=== PATIENT | female | born 1955 | race Caucasian/White ===

== ENCOUNTER 2017-01-16 20:41 | Emergency (ER) | payer MEDICARE, BC ==
[~2017-01-16] VITALS: Ht 167.6 cm; Wt 89.8 kg
[~2017-01-16 20:41] MED LIST: CYANOCOBALAM1000 MCG PO; CYCLOBENZAPRINE5 MG PO; FISH OIL 1,001000 MG PO; FLEXERIL10 MG PO; GLIPIZIDE10 MG PO; HYDROCODON-ACE1 EAC1 PO; HYDROCODONE/APA1 T16 PO; LEVAQUIN750 MG PO; LISINOPRIL5 MG PO; LODINE400 MG PO; LORTAB 5/500 TA1 TA1 PO; METFORMIN HCL1000 M1 PO; TAMIFLU75 M1 PO; TRAMADOL HCL50 M2 PO; VICODIN 5/500 T1 TAB PO; ZOCOR20 MG PO; ZYRTEC PO
== END 2017-01-16 22:45 | disposition home or self-care (01) ==
LOC: CED 20:41 → CFTX 20:41
DX: K08.89 Other specified disorders of teeth and supporting structures (principal); K21.9 Gastro-esophageal reflux disease without esophagitis; E78.5 Hyperlipidemia, unspecified; Z88.1 Allergy status to other antibiotic agents; Z88.8 Allergy status to other drugs, medicaments and biological substances; Z79.899 Other long term (current) drug therapy
CPT/HCPCS: 99282